=== PATIENT | male | born 1940 | race Two or more races ===

== ENCOUNTER 2023-11-29 12:00 | Emergency (ER) | payer OTHER ==
[~2023-11-29] VITALS: Ht 170.2 cm; Wt 77.1 kg
== END 2023-11-29 16:35 | disposition home or self-care (01) ==
LOC: ER 12:00
DX: R05.8 Other specified cough (principal); N18.6 End stage renal disease; Z99.2 Dependence on renal dialysis; Z20.822 Contact with and (suspected) exposure to COVID-19